=== PATIENT | female | born 1985 | race Caucasian/White ===

== ENCOUNTER → 2022-02-19 09:20 | Outpatient (BNVA) | payer BC, MEDICAID, SELFPAY | PROVIDERS: Referring Provider Nurse Practitioner; Visit Provider Student in an Organized Health Care Education/Training Program | DX: M67.442 Ganglion, left hand (principal) | CPT/HCPCS: 73130 ==

== ENCOUNTER → 2022-05-30 14:10 | Outpatient (BNVA) | payer MEDICAID, SELFPAY | PROVIDERS: Visit Provider Internal Medicine | DX: Z34.91 Encounter for supervision of normal pregnancy, unspecified, first trimester (principal); R79.89 Other specified abnormal findings of blood chemistry; E23.7 Disorder of pituitary gland, unspecified; E07.9 Disorder of thyroid, unspecified | CPT/HCPCS: 99204 ==

== ENCOUNTER 2022-06-04 09:17 | Outpatient (CLI) | payer MEDICAID, SELFPAY ==
[2022-06-04 10:39] LABS: Cortisol Random 8.22 ug/dL (2.47-19.5); Thyroid Stimulating Hormone 1.04 uIU/mL (0.27-4.20)
[2022-06-06 01:40] LABS: T4 Total 3.2 mcg/dL (5.1-11.9)
== END 2022-06-04 09:18 | disposition home or self-care (01) ==
PROVIDERS: PCP Nurse Practitioner; Visit Provider Internal Medicine
DX: E23.7 Disorder of pituitary gland, unspecified (principal); R79.89 Other specified abnormal findings of blood chemistry
CPT/HCPCS: 36415; 82533; 84436; 84443

== ENCOUNTER 2024-02-20 11:09 | Outpatient (CLI) | payer BC, SELFPAY ==
--- NOTE | 2024-02-20 11:00 | MR_ITS ---
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 COMPARISON: None available. TECHNIQUE: Diffusion imaging, multiplanar T1, T2 and FLAIR imaging obtained. No evidence for acute infarct or hemorrhage. Aviles-white matter differentiation is normal. No remote or acute infarcts are volume loss. Ventricles and extra-axial spaces are normal. No inferior displacement of cerebellar tonsils. The sella turcica and pituitary gland are unremarkabl e. Dural venous sinuses and [place] demonstrate no abnormality on this unenhanced studies. Paranasal sinuses: Clear. Mastoid air cells: Normal. Calvarium and scalp: Intact. MR/MR head wo con* [id number] IMPRESSION: 1. Negative MRI brain, noncontrast. 2. No prior hemorrhage or infarct. Normal appearance of the aviles and white mat ter. 3. Normal ventricles.
== END 2024-02-20 11:10 | disposition home or self-care (01) ==
LOC: RAD 11:10
PROVIDERS: PCP Nurse Practitioner; Visit Provider Specialist
DX: G40.309 Generalized idiopathic epilepsy and epileptic syndromes, not intractable, without status epilepticus (principal)
CPT/HCPCS: 70551